=== PATIENT | female | born 1960 | race American Indian/Alaskan Native ===

== ENCOUNTER 2017-06-30 07:15 | Day surgery (SDC) | payer OTHER ==
[2017-06-29 13:48] VITALS: BMI 29.5
[2017-06-30 07:46] LABS: BASO # 0.1 K/uL (0.0-0.2); EOS # 0.1 K/uL (0.0-0.7); EOS % 1.9 % (0.0-4.0); HEMATOCRIT 35.2 % (34.0-47.0); LYMPH # 3.1 K/uL (1.0-4.3); LYMPH % 47.7 % (20.0-40.0); MEAN CELL VOLUME 84.4 fL (81.0-99.0); MEAN CORPUSCULAR HEMOGLOBIN 28.6 pg (27.0-31.0); MEAN CORPUSCULAR HGB CONC 33.9 g/dL (33.0-37.0); MEAN PLATELET VOLUME 8.1 fL (7.2-11.7); MONO # 0.4 K/uL (0.0-0.8); MONO % 5.8 % (0.0-10.0); NRBC % 0.1 % (0.0-2.0); RED CELL DISTRIBUTION WIDTH 14.5 % (11.5-14.5); WHITE BLOOD COUNT 6.5 K/uL (4.8-10.8)
[2017-06-30 07:58] LABS: CHLORIDE 102 mmol/L (98-107)
[2017-06-30 07:59] LABS: POTASSIUM 3.8 mmol/L (3.6-5.2); SODIUM 138 mmol/L (132-148)
[2017-06-30 08:01] LABS: GFR AFRICAN-AMERICAN > 60
[2017-06-30 08:02] LABS: BLOOD UREA NITROGEN 17 mg/dL (7-17); CALCIUM 8.9 mg/dl (8.6-10.4); CARBON DIOXIDE 28 mmol/L (22-30); GLUCOSE,RANDOM 86 mg/dL (65-105)
[2017-06-30] MEDS ORDERED: cefOXitin IV 1 gm in Dextrose 1 GM/50 ML BAG IVPB ONE (10:40)
[2017-06-30] MEDS ORDERED: Propofol 10 mg/ml Inj (20 ML) ONE (10:45)
[2017-06-30] MEDS ORDERED: Lactated Ringer's 1,000 ML IV ONE (10:51)
[2017-06-30] MEDS ORDERED: HYDROmorphone 0.5 mg/0.5 ml ISec IVP PRN (11:15)
[2017-06-30] MEDS ORDERED: Oxycodone/Acetaminophen 5/325 mg Tab PO PRN (11:32)
--- NOTE | 2017-06-30 12:03 | PCM.SURG1 ---
Surgeon's Initial Post Op Note - Surgeon's Notes Surgeon: Dr Pacheco [employer] Consultant: Jenn Price( resident) Type of Anesthesia: General Endo Anesthesia Administered By: SANTI Mendez, Supervised by Dr Ballard Pre-Operative Diagnosis: Postmenopausal bleeding. Multinodular Fibroid uterus Operative Findings: 10-12 week sized retroverted multinodular fibroid uterus. Multiple submucous fibroid nodules viewed at hysteroscopy. An endometrial po, lyp was seen on the anterior wall of the endometrium which was curreted and included for pathology. IVF Intake - 600ml. EBL- 50mls. Urine Output-50mls Post-Operative Diagnosis: Same as preop diagnosis Operation Performed: Diagnostic Hysteroscopy with D and C Specimen/Specimens Removed: Endometrial and endocervical curretings Estimated Blood Loss: EBL {In ML}: 50 Blood Products Given: N/A Post-Op Condition: Good Date of Surgery/Procedure: 06/30/17 Time of Surgery/Procedure: 12:08
[2017-06-30 12:45] VITALS: RESP 16
[2017-06-30 15:32] VITALS: BP 115/66; PULSE 71; TEMP 97.8; O2SAT 99
--- NOTE | 2017-06-30 15:39 | OP ---
DATE: PREOPERATIVE DIAGNOSES: 1. A 56-year-old female with postmenopausal bleeding. 2. Multinodular fibroid uterus. POSTOPERATIVE DIAGNOSES: 1. A 56-year-old female with postmenopausal bleeding. 2. Multinodular fibroid uterus. PROCEDURE DONE: Dilatation and curettage, hysteroscopy performed on 06/30/2017. SURGEON: Benton Pacheco MD MOTOR[employer]CLE MECHANIC: Carolina Price, [facility] resident. TYPE OF ANESTHESIA: General endotracheal. ANESTHESIA ADMINISTERED BY: SANTI Mendez, supervised by Dr. Ballard. OPERATIVE FINDINGS: A 10 to 12 weeks' size retroverted multinodular fibroid uterus. There were multiple submucous fibroid nodules viewed at hysteroscopy. Endometrial polyp was seen on the anterior wall of the endometrium and this was and sent for pathology. The uterus was sounded to a depth of about 10 cm. COMPLICATIONS: There were no complications. IV FLUID INTAKE: 600 mL. ESTIMATED BLOOD LOSS: 50 mL. URINE OUTPUT: 50 mL of clear urine. SPECIMENS SENT: Endometrial and endocervical curettings. DESCRIPTION OF PROCEDURE: After obtaining informed consent, the patient was sent to the OR with IV running. The patient was put in a supine position on the OR table and after adequate general anesthesia was repositioned in the dorsal lithotomy position using Papo stirrups. The patient was then prepped and draped in the usual sterile fashion. The urinary bladder was drained with a straight cath with output of 50 mL of clear urine. The posterior wall of the vagina was depressed using a weighted speculum and anterior wall was elevated with an L-shaped retractor to expose the cervix. The anterior lip of the cervix was held with a single-tooth tenaculum and was brought into the operative field. The uterus was then sounded to a depth of about 10 cm. Examinations under anesthesia revealed 10 to 12-week multinodular uterus, which was retroverted. The hysteroscope was introduced after dilating the cervical canal with Hegar's dilator to about 8 mm dilatation with the above findings noted. Multiple submucous fibroid nodules were noted both on the anterior and posterior wall of the endometrial cavity. A solitary polyp was also identified about 0.5 x 1.0 x 0.5 cm on the anterior inferior wall of the endometrial cavity. Sharp curettage was performed after the hysteroscopy and the tissues obtained were sent for pathological evaluation and endocervical curettage was also performed and sent for pathology. Once the procedure had been completed, all instruments were taken out of the vagina. Hemostasis was assured at the cervix. The patient was replaced in the supine position and was sent to the recovery room awake and in stable condition. All counts were correct x3. Benton Pacheco MD
--- NOTE | 2017-07-01 11:57 | CARD ---
APPROVED REPORT EKG Measurement Heart [id number] <Conclusion> Normal sinus rhythm with sinus arrhythmia Normal ECG
== END 2017-06-30 14:45 | disposition home or self-care (01) ==
LOC: C.SDS 07:15
PROVIDERS: ATTEND Obstetrics & Gynecology
DX: D25.0 Submucous leiomyoma of uterus (principal); N95.0 Postmenopausal bleeding; N84.0 Polyp of corpus uteri
CPT/HCPCS: 36415; 58563; 80048; 85025; 88305; 93005; J0694; J2405; J2704; J2765; J3010; J7120

== ENCOUNTER 2018-04-19 09:25 | Day surgery (SDC) | payer OTHER ==
[2018-04-12 08:36] VITALS: BMI 30.7
[2018-04-19] MEDS ORDERED: Lidocaine/Epinephrine 1% 1:100000 10 ML IJ ONE (11:56)
[2018-04-19] MEDS ORDERED: ceFAZolin IV 1 gm in Dextrose 0 GM/0 ML BAG IVPB ONE (11:56)
[2018-04-19] MEDS ORDERED: Bupivacaine 0.25% 20 ML INJ IJ ONE (11:56)
[2018-04-19] MEDS ORDERED: ceFAZolin IV 2 gm in Dextrose 2 GM/50 ML BAG IVPB ONE (11:57)
[2018-04-19] MEDS ORDERED: Midazolam 2 MG/2 ML VIAL ONE ×2 (12:01→12:13)
[2018-04-19] MEDS ORDERED: Propofol 10 mg/ml Inj (20 ML) ONE (12:01)
[2018-04-19] MEDS ORDERED: HYDROmorphone 0.5 mg/0.5 ml ISec IVP PRN (12:44)
--- NOTE | 2018-04-19 12:47 | PCM.SURG1 ---
Surgeon's Initial Post Op Note - Surgeon's Notes Surgeon: Jesus Hua MD [employer] Salesperson: GITA Granado Type of Anesthesia: IV Sedation, Local Pre-Operative Diagnosis: Lipoma of Back Operative Findings: Lipoma of Back 4x3 cm Post-Operative Diagnosis: Lipoma of Back 4x3 cm Operation Performed: Excision of Lipoma of Back 4x3 cm. Layered Closure of wound 4x3x4 cm Specimen/Specimens Removed: Lipoma of Back Estimated Blood Loss: EBL {In ML}: 10 Blood Products Given: N/A Drains Used: No Drains Post-Op Condition: Good Date of Surgery/Procedure: 04/19/18 Time of Surgery/Procedure: 12:47
[2018-04-19 13:46] VITALS: RESP 18
[2018-04-19 15:25] VITALS: TEMP 97.7
[2018-04-19 15:27] VITALS: BP 143/89; PULSE 80; O2SAT 99
--- NOTE | 2018-04-20 02:56 | OP ---
Copied To: Lenin Hua MD Attending MD: Lenin Hua MD PROCEDURE DATE: 04/19/2018 PREOPERATIVE DIAGNOSIS: Lipoma of the back. POSTOPERATIVE DIAGNOSIS: Lipoma of the back, 4 x 3 cm size. PROCEDURES DONE: 1. Excision of lipoma of the back, 4 x 3 cm size. 2. Layered closure of the wound, 4 x 3 x 4 cm size. TYPE OF ANESTHESIA: Local anesthesia plus sedation. ESTIMATED BLOOD LOSS: Around 10 mL. DRAINS: None. PATHOLOGY: Lipoma of the back was sent to the pathology. COMPLICATIONS: None. INTRAOPERATIVE FINDINGS: The patient had a lipoma of the back, approximately 4 x 3 cm size. DESCRIPTION OF PROCEDURE: On intraoperative steps, this is a 57-year-old female who was diagnosed with lipoma of the back, and the patient was consented for the excision of lipoma of the back and brought to the OR and placed supine on the operating table. After induction of the sedation, the patient was placed in the left lateral position. The back area was prepped and draped in the usual sterile fashion. Local anesthesia was injected. Transverse 4 cm incision was made. After incising the skin, subcutaneous tissue, and superficial fascia, the lipoma was identified. The lipoma was completely excised. The lipoma was extending up to the deep fascia and proper hemostasis was achieved. The wound was closed in multiple layer. The deeper layer with 2-0 Vicryl, superficial layer with 3-0 Vicryl, and the skin with 4-0 Monocryl, and dry sterile dressing was applied. The patient tolerated the procedure well. Count of the instruments and gauze was correct. There were no apparent complications. The patient was reversed from sedation, sent to the postanesthesia care unit in stable condition. Lenin Hua MD
== END 2018-04-19 14:45 | disposition home or self-care (01) ==
LOC: C.SDS 09:25
PROVIDERS: ATTEND Surgery Surgical Critical Care
DX: D17.1 Benign lipomatous neoplasm of skin and subcutaneous tissue of trunk (principal)
CPT/HCPCS: 11406; 12032; 88304; J0690; J2250; J2704; J3010